=== PATIENT | female | born 1950 | race Caucasian/White ===

== ENCOUNTER → 2019-03-18 | Outpatient (CLI) | payer MEDICARE ==
[2019-03-18 15:12] LABS: Blood Urea Nitrogen 13 mg/dL (7-17)
--- NOTE | 2019-03-19 09:15 | CT ---
EXAMINATION TYPE: CT abdomen pelvis w con DATE OF EXAM: 03/18/2019 HISTORY: Abdominal/pelvic mass per order. Unspecified pain per technologist. CT DLP: 900mGycm Automated Exposure Control for Dose Reduction was Utilized. CONTRAST: CT scan of the abdomen and pelvis is performed with IV Contrast, patient injected with 100 mL of Isov ue 300. COMPARISON: None. FINDINGS: LUNG BASES: No significant abnormality is appreciated. LIVER/GB: Small amount of ascites surrounding the liver is present. There is nonspecific 2.7 cm oval hypodense lesion right hepatic lobe axial image 24 causing focal mild to moderate intrahepatic biliar y dilatation in the right lateral periphery just inferior to this. PANCREAS: No significant abnormality is seen. SPLEEN: Small amount of surrounding ascites. ADRENALS: No significant abnormality is seen. KIDNEYS: No significant abnormality is seen. BOWEL: The oral contrast reaches the level of the terminal ileum. There is no suspicious small or lar ge bowel dilatation. UTERUS/ADNEXA: Anteverted uterus is present, normal in size for postmenopausal female. There is moder ate amount of fluid that is hyperdense relative to adjacent urine in the pelvic cul-de-sac axial imag e 66 suggesting nonsimple etiology. There is large lobulated solid and cystic left adnexal presumed l eft ovarian mass causing mass effect on the bladder on coronal images measuring 11.5 x 7.1 cm transve rsely axial image 61 x 9.7 cm craniocaudal dimension coronal image 44. There is similar larger solid and cystic heterogeneous right lower quadrant/pelvic presumed ovarian mass or neoplasm measuring 8.5 x 10.8 cm transversely by 15.2 cm craniocaudal dimension axial image 51 and coronal image 35. LYMPH NODES: There is mild scattered ascites with nodular thickening of the peritoneum below the angeline in of the liver anterior to the right colon axial image 34 for reference. There are additional perito erasmo nodules in the left upper quadrant adjacent to the greater curvature axial image 20 for referenc e measuring 4.5 x 3.4 cm. There are additional peritoneal masses or deposits in the posterior left u pper pelvis axial image 52. OSSEOUS STRUCTURES: Levoconvex scoliosis centered in the upper lumbar spine is present. There is mode rate to severe disc space narrowing with left-sided endplate sclerosis L5-S1 level. Mild to moderate narrowing of both hip joints is present. OTHER: No significant additional abnormality is seen. IMPRESSION: Large bilateral pelvic/ovarian masses or neoplasms with ascites and peritoneal carcinomat osis, focal liver lesion causing focal biliary dilatation worrisome for additional metastatic focus. Advise gynecology oncology referral and tumor workup evaluation. A Yellow level critical message alert has been initiated for Melissa Billingsley DO via the [employer] Critical Results System on 03/19/2019 9:12 AM. This message alert has been sent to Melissa de león DO via the preferences provided by the clinician for the receipt of Radiology Critical Findings. Message ID [id number].
== END | disposition home or self-care (01) ==
LOC: RADCTMAIN 14:35
PROVIDERS: ATTEND Family Medicine
DX: C78.6 Secondary malignant neoplasm of retroperitoneum and peritoneum (principal); K76.9 Liver disease, unspecified; R18.8 Other ascites
CPT/HCPCS: 82565; 84520; 74177; 36415; Q9967

== ENCOUNTER → 2020-04-09 | Outpatient (CLI) | payer MEDICARE ==
--- NOTE | 2020-04-09 14:51 | NM ---
EXAMINATION TYPE: NM bone scan whole body DATE OF EXAM: 04/09/2020 COMPARISON: CT 03/18/2019 HISTORY: Back pain, ovarian carcinoma, scoliosis Delayed whole-body scanning was performed following the injection of 23.5 mCi Tc 99m MDP. Images acq uired 3 hours post injection. FINDINGS: Soft tissue uptake is normal. S-shaped thoracic lumbar scoliosis is present. Uptake within the feet, ankles, knees, wrists, shoulders is likely degenerative. No abnormal uptake is present to suggest met astatic disease. Uptake in the right mandible likely due to periodontal disease. Uptake in the lower lumbar spine likely due to degenerative disc change. IMPRESSION: No evident metastatic disease. Osteoarthritic changes, degenerative disc disease, scoliosis and addit ional findings above.
== END | disposition home or self-care (01) ==
LOC: RADNMMAIN 09:40
PROVIDERS: ATTEND Family Medicine
DX: M19.90 Unspecified osteoarthritis, unspecified site (principal); M51.36 Other intervertebral disc degeneration, lumbar region; M41.9 Scoliosis, unspecified; M85.80 Other specified disorders of bone density and structure, unspecified site; C56.9 Malignant neoplasm of unspecified ovary; Z88.0 Allergy status to penicillin
CPT/HCPCS: 78306; A9503

== ENCOUNTER → 2020-06-01 | Outpatient (CLI) | payer MEDICARE ==
--- NOTE | 2020-06-02 12:03 | MM ---
Reason for exam: screening (asymptomatic). History: Patient is postmenopausal, has history of ovarian cancer at age 69, and history of other cancer. Chemotherapy, 2019. Physical Findings: A clinical breast exam by your physician is recommended on an annual basis and results should be correlated with mammographic findings. MG 3D Screening Mammo W/Cad Bilateral CC and MLO view(s) were taken. There are scattered fibroglandular densities. There is no discrete abnormality. ASSESSMENT: Benign, BI-RAD 2 RECOMMENDATION: Routine screening mammogram of both breasts in 1 year.
== END | disposition home or self-care (01) ==
LOC: RADMAMWWP 13:31
PROVIDERS: ATTEND Family Medicine
DX: Z12.31 Encounter for screening mammogram for malignant neoplasm of breast (principal)
CPT/HCPCS: 77063; 77067

== ENCOUNTER → 2022-05-03 | Outpatient (CLI) | payer MEDICARE ==
--- NOTE | 2022-05-05 07:25 | MM ---
Reason for Exam: Screening (asymptomatic). Last mammogram was performed 1 year(s) and 11 month(s) ago. Patient History: Menarche at age 14. First Full-Term at age 22. Left ovary removed at age 69. Right ovary removed at age 69. Hysterectomy at age 69. Postmenopausal. Other cancer. Ovarian cancer, age 69. Previous chemotherapy at age 69. 2019, Chemotherapy. Risk Values: Verenice 5 year model risk: 1.5%. NCI Lifetime model risk: 4.5%. Prior Study Comparison: 06/01/2020 Bilateral Screening Mammogram, [facility]. Tissue Density: There are scattered fibroglandular densities. Findings: Analyzed By CAD. There is no suspicious group of microcalcifications or new suspicious mass in either breast. Overall Assessment: Negative, BI-RAD 1 Management: Screening Mammogram of both breasts in 1 year. A clinical breast exam by your physician is recommended on an annual basis and results should be correlated with mammographic findings. Electronically signed and approved by: Akash Horn D.O.
== END | disposition home or self-care (01) ==
LOC: RADMAMWWP 11:47
PROVIDERS: ATTEND Family Medicine
DX: Z12.31 Encounter for screening mammogram for malignant neoplasm of breast (principal)
CPT/HCPCS: 77063; 77067

== ENCOUNTER → 2023-09-25 | Outpatient (CLI) | payer MEDICARE ==
--- NOTE | 2023-09-25 15:56 | US ---
EXAMINATION TYPE: US venous doppler duplex LE LT DATE OF EXAM: 09/25/2023 3:48 PM COMPARISON: NONE CLINICAL INDICATION: Female, 73 years old with history of M79.662 PAIN LLE R22.42 Swelling LLE; x 3 w eeks without injury; stage 4 stomach cancer diagnosis about 5 years ago; recent complete hysterectomy and cholecystectomy due to mets; no current chemo or radiation SIDE PERFORMED: Left TECHNIQUE: The lower extremity deep venous system is examined utilizing real time linear array sonog price with graded compression, doppler sonography and color-flow sonography. VESSELS IMAGED: Common Femoral Vein Deep Femoral Vein Greater Saphenous Vein * Femoral Vein Popliteal Vein Small Saphenous Vein * Proximal Calf Veins Posterior tibial veins (* superficial vessels) Left Leg: Negative for DVT IMPRESSION: No evidence for DVT within the left lower extremity.
== END | disposition home or self-care (01) ==
LOC: RADUSWWP 15:28
PROVIDERS: ATTEND Family Medicine
DX: R22.42 Localized swelling, mass and lump, left lower limb (principal); M79.662 Pain in left lower leg

== ENCOUNTER → 2024-02-19 | Outpatient (CLI) | payer MEDICARE ==
--- NOTE | 2024-02-20 09:36 | MM ---
Reason for Exam: Screening (asymptomatic). Last mammogram was performed 1 year(s) and 9 month(s) ago. Patient History: Menarche at age 14. First Full-Term at age 22. Left ovary removed at age 69. Right ovary removed at age 69. Hysterectomy at age 69. Postmenopausal. Other cancer. Ovarian cancer, age 69. Previous chemotherapy at age 69. 2019, Chemotherapy. Risk Values: Verenice 5 year model risk: 1.6%. NCI Lifetime model risk: 4.3%. Prior Study Comparison: 06/01/2020 Bilateral Screening Mammogram, [facility]. 05/03/2022 Bilateral MG 3D screening mammo w/cad, [facility]. Tissue Density: The breasts are heterogeneously dense, which may obscure small masses. Findings: Analyzed By CAD. There is no suspicious group of microcalcifications or new suspicious mass in either breast. Benign calcification. Overall Assessment: Benign, BI-RAD 2 Management: Screening Mammogram of both breasts in 1 year. . Patient should continue monthly self-breast exams. A clinical breast exam by your physician is recommended on an annual basis. This exam should not preclude additional follow-up of suspicious palpable abnormalities. Note on Verenice scores and lifetime risk: 1. A Verenice score greater than 3% is considered moderate risk. If this is the case, consider specialist referral to assess eligibility for a risk reducing agent. 2. If overall lifetime risk for the development of breast cancer is 20% or higher, the patient may qualify for future screening with alternating mammogram and breast MRI. Electronically signed and approved by: Juan J Gaines M.D. Radiologis
== END | disposition home or self-care (01) ==
LOC: RADMAMWWP 12:30
PROVIDERS: ATTEND Family Medicine
DX: Z12.31 Encounter for screening mammogram for malignant neoplasm of breast (principal); Z78.0 Asymptomatic menopausal state
CPT/HCPCS: 77063; 77067